=== PATIENT | female | born 1940 | race Caucasian/White ===

== ENCOUNTER 2022-08-13 15:01 | Inpatient (IN) | payer MEDICARE, BC ==
[~2022-08-13] VITALS: Ht 149.9 cm; Wt 59.0 kg
[2022-08-13] MEDS ORDERED: TOPROL XL25 MG PO (16:56)
[2022-08-13] MEDS ORDERED: BIOTIN1000 MCG PO (16:57)
[2022-08-13] MEDS ORDERED: VITAMIN D350 MC3 PO (16:58)
[2022-08-13] MEDS ORDERED: EMERGEN-C 500500 MG PO (16:59)
[2022-08-13] MEDS ORDERED: CITALOPRAM HBR10 MG PO (16:59)
[2022-08-13] MEDS ORDERED: LEVOTHYROXINE125 MC1 PO (17:00)
[2022-08-14] MEDS ORDERED: CITALOPRAM HBR20 MG PO (08:44)
--- NOTE | 2022-08-14 18:01 | EKG ---
[facility] [address] [facility] [place] [address] Signed Sinus tachycardia Nonspecific ST abnormality Abnormal ECG No previous ECGs available Confirmed by RADHA TORRE MD ([id number] on 08/14/2022 6:01:15 PM Electronically Signed By: RADHA TORRE MD 08/14/221800 PATIENT NAME: PEDRO BISHOP Electrocardiogram DATE OF : 44 PHYSICIAN: RADHA TORRE MD REPORT #: [id number] REPORT IS CONFIDENTIAL AND NOT TO BE RELEASED WITHOUT AUTHORIZATION
[2022-08-15] MEDS ORDERED: LEVOTHYROXINE125 MCG PO (08:03)
[2022-08-15] MEDS ORDERED: CEFPODOXIME PR200 MG PO (10:38)
== END 2022-08-15 12:35 | disposition home or self-care (01) | DRG 872 ==
LOC: ED 15:01 → CCU 18:49 → MS 08-14 15:45
PROVIDERS: ADMIT Internal Medicine; ATTEND Internal Medicine
DX: A41.4 Sepsis due to anaerobes (principal); N39.0 Urinary tract infection, site not specified; B96.1 Klebsiella pneumoniae [K. pneumoniae] as the cause of diseases classified elsewhere; I10 Essential (primary) hypertension; E03.9 Hypothyroidism, unspecified; F39 Unspecified mood [affective] disorder; Z88.5 Allergy status to narcotic agent; Z88.2 Allergy status to sulfonamides; Z88.1 Allergy status to other antibiotic agents; Z90.710 Acquired absence of both cervix and uterus; Z90.49 Acquired absence of other specified parts of digestive tract; Z79.899 Other long term (current) drug therapy; Z87.891 Personal history of nicotine dependence; Z20.822 Contact with and (suspected) exposure to COVID-19
CPT/HCPCS: 36415; 51701; 71045; 71260; 80053; 81001; 83605; 85025; 85610; 85730; 87088; 87502; 93005; 93010; 94667; 94668; 94760; 96368; 99285-25; C9803; J0696; J1650; J1956; J7121; Q9967; U0003